=== PATIENT | female | born 1970 | race Caucasian/White ===

== ENCOUNTER 2016-10-27 23:10 | Emergency (ER) | payer OTHER ==
[~2016-10-27] VITALS: Ht 157.5 cm; Wt 72.6 kg
[2016-10-28] MEDS ORDERED: IBUPROFEN 400 MG TABLET ONE (00:40)
[2016-10-28] MEDS ORDERED: IBUPROFEN 400 MG TABLET PO ONE (01:00)
[2016-10-28 01:22] VITALS: BP 110/71
== END 2016-10-28 01:23 | disposition home or self-care (01) ==
LOC: ER 23:13
DX: S90.32XA Contusion of left foot, initial encounter (principal); S90.415A Abrasion, left lesser toe(s), initial encounter; X58.XXXA Exposure to other specified factors, initial encounter; Y92.89 Other specified places as the place of occurrence of the external cause; Y93.89 Activity, other specified; Y99.8 Other external cause status
CPT/HCPCS: 73630-TC; A4606; A6402; J3490; Z7610